=== PATIENT | male | born 1965 | race Caucasian/White ===

== ENCOUNTER 2025-06-07 19:41 | Observation (INO) | payer OTHER, SELFPAY ==
[2025-06-07 19:52] VITALS: BP 180/84; PULSE 50; RESP 14; TEMP 36.3; O2SAT 100; BMI 29.7
--- NOTE | 2025-06-07 19:57 | EKG_ITS ---
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
[2025-06-08] VITALS (28 sets, daily range): BP systolic 116–172; BP diastolic 66–89; PULSE 82–105; RESP 14–21; TEMP 36.5–37.6; O2SAT 89–97; BMI 29.7
--- NOTE | 2025-06-08 | PATH_ITS ---
[facility] Accession Number: [id number] No. of containers..01 Tissue . 01 Material submitted: . gallbladder - GALLBLADDER . 01 Diagnosis: GALLBLADDER, CHOLECYSTECTOMY: Acute calculous cholecystitis with surface erosions, focal ulceration and reactive changes. Negative for dysplasia or malignancy. MRV 06/17/2025 1602 Local . 01 Electronically signed: . Maury Mcfarland MD, Pathologist NPI- [id number] . 01 Gross description: . Received in formalin with two identifiers and gallbladder, is an intact gallbladder 9.6 x 5.1 x 3.4 cm. The external surface is green-brown to violaceous and unremarkable. The cystic duct margin is inked blue. No pericystic lymph node is identified. The lumen contains multiple dark brown faceted calculi up to 0.9 cm in greatest dimension not grossly obstructing the cystic duct and admixed with green to brown viscous bile. The mucosa is green-brown and velvety with no yellow discoloration, polyps, or lesions identified. The antonio average 0.3 cm thick with no lesions identified. Hazardous Substances Scientist sections to include the cystic duct margin and full thickness sections are submitted in cassette A1. ([id number]) /EDMUNDO 06/10/20252002 Local . 01 Pathologist provided ICD-10: K80.00 . 01 CPT . 748982 Specimen Comment: A courtesy copy of this report has been sent to [phone] Performed at: [address] [id number] MD Gabe Doherty MD Phone: [phone]
--- NOTE | 2025-06-08 01:38 | ED_ITS ---
HPI - Abdominal Pain General Chief Complaint: Abdominal Pain Stated Complaint: sharp pain in abd/back, dry heaving Time Seen by Provider: 06/08/25 00:59 Source: patient Mode of arrival: Ambulatory History of Present Illness HPI narrative: 59-year-old male without prior abdominopelvic surgeries, no blood thinners, has history of shoulder arthritis taking regular Aleve, history of kidney stones, no known history of stomach ulcers, complains of upper abdominal pain since yesterday, radiates to the back, with some nausea and retching, no fevers or chills. Worse pain with deep breathing. No injury trauma new activities. Denies frequent or painful urination. Denies history of known kidney stones. Occasional cough, nonproductive. No history of blood clots to legs or lungs. No leg pain or swelling symptoms. Denies shortness of breath. Meds: Hydrochlorothiazide, statin, [id number] Aleve Social history: Lives part-time in the [facility] during go[place], otherwise resident most [place] and [place]. Primary care providers in the [facility] area. Related Data Home Medications ?Medication ?Instructions ?Recorded ?Confirmed atorvastatin 10 mg tablet 10 mg PO DAILY 06/08/2505/20 hydrochlorothiazide 12.5 mg capsule 12.5 mg PO DAILY 0 06/08/25 06/08/25 multivitamin (Daily Multi-Vitamin 1 tab PO DAILY 06/0806/08/25 tablet) naproxen sodium 220 mg capsule 220 mg PO BID 06/08/25 06/08/25 (Aleve) Allergies Allergy/AdvReac Type Severity Reaction Status Date / Time No Known Drug Allergies Allergy Verified 06/07/25 19:52 Patient History Social History household members: spouse Smoking Status: Current some day smoker Smoking Status: Current some day smoker Exam Narrative Exam Narrative: GENERAL: Well-developed patient, in mild distress. HEAD: Atraumatic. Normocephalic. EYES: Pupils equal round and reactive. Extraocular motions intact. No scleral icterus. No injection or drainage. ENT: Nose without bleeding, purulent drainage. Throat without erythema, tonsillar hypertrophy or exudate. Airway patent. NECK: Trachea midline. Non tender CARDIOVASCULAR: Regular rate and rhythm without murmurs, gallops, or rubs. RESPIRATORY: Clear to auscultation. Breath sounds equal bilaterally. No wheezes, rales, or rhonchi. GASTROINTESTINAL: Tender right upper quadrant and epigastrium, no distention, no guarding or rebound, bowel tones without rushes or tinkles. EXTREMITIES: No edema or joint tenderness. BACK: Nontender without deformity or crepitance. No flank tenderness. NEURO: AOx3. Motor functions grossly nonfocal. SKIN: No rash or erythema of visible areas Initial Vital Signs Initial Vital Signs: Vital Signs Temperature 97.4 F L 06/07/25 19:52 Pulse Rate 50 L 06/07/25 19:52 Respiratory Rate 14 06/07/25 19:52 Blood Pressure 180/84 H 06/07/25 19:52 Pulse Oximetry 100 06/07/25 19:52 Oxygen Delivery Method Room Air 06/07/25 19:52 Course Orders Ordered: Acetaminophen (Acetaminophen 325 Mg Tablet) 650 mg PO Q6H PRN PRN Reason: Fever/Mild Pain (1-3) Hydrocodone Bitart/Acetaminophen (Hydrocodone/Acet 5/325 Tablet) 1 tab PO Q4H PRN PRN Reason: Pain, Moderate (4-6) Last Admin: 06/08/25 14:09 Dose: 1 tab Documented By: LAKISHA Hydrocodone Bitart/Acetaminophen (Hydrocodone/Acet 5/325 Tablet) 2 tab PO Q4H PRN PRN Reason: Pain, Severe (7-10) Enoxaparin Sodium (Enoxaparin 40 Mg/0.4 Ml Syringe) 40 mg SUBCUT DAILY [facility] Hydromorphone HCl (Hydromorphone Hcl 0.5 Mg/0.5 Ml Syringe) 0.5 mg IV Q2H PRN PRN Reason: Pain, Severe (7-10) Last Admin: 06/08/25 11:37 Dose: 0.5 mg Documented By: LDV Piperacillin Sod/Tazobactam (Sod 3.375 gm/ Sodium Chloride) 100 mls @ 25 mls/hr IV Q8H [facility] Last Infusion: 06/08/25 15:46 Dose: Infused Documented By: Admin: 06/08/25 11:41 Dose: 25 mls/hr Documented By: LDV Ibuprofen (Ibuprofen 600 Mg Tablet) 600 mg PO Q6H PRN PRN Reason: Fever/Mild Pain (1-3) Naloxone HCl (Naloxone 0.4 Mg/Ml Vial) 0.2 mg IV Q2MIN PRN PRN Reason: Opiate Reversal Ondansetron HCl (Ondansetron 4 Mg/2 Ml Inj) 4 mg IV Q8HR PRN PRN Reason: Nausea And Vomiting Discontinued Medications Benzocaine (Benzocaine/Menthol 1 Christopher Pkt) 1 each PO PRN PRN PRN Reason: Sore Throat Bupivacaine HCl/Epinephrine Bitart (Bupivacaine 0.5% W/ Epi (Pf) 30 Ml Vial) 30 ml INJ NOW ONE Stop: 06/08/25 08:51 Last Admin: 06/08/25 08:50 Dose: 30 ml Documented By: Famotidine (Famotidine 20 Mg/2 Ml Vial) 20 mg IV NOW MINE Last Admin: 06/08/25 02:58 Dose: 20 mg Documented By: Fentanyl (Fentanyl 100 Mcg/2 Ml Inj) 0 mcg IV Q5MIN PRN PRN Reason: Pain, Severe (7-10) Fentanyl (Fentanyl 100 Mcg/2 Ml Inj) 0 mcg IV Q5M PRN PRN Reason: Pain, Moderate (4-6) Fentanyl (Fentanyl 100 Mcg/2 Ml Inj) 0 mcg IV Q5M PRN PRN Reason: Pain, Severe (7-10) Hydromorphone HCl (Hydromorphone 1 Mg/Ml Syringe) 1 mg IV NOW ONE Stop: 06/08/25 01:48 Last Admin: 06/08/25 01:52 Dose: 1 mg Documented By: FRIEDA Hydromorphone HCl (Hydromorphone Hcl 0.5 Mg/0.5 Ml Syringe) 0.5 mg IV NOW ONE Stop: 06/08/25 06:29 Last Admin: 06/08/25 06:31 Dose: 0.5 mg Documented By: FRIEDA Hydromorphone HCl (Hydromorphone 1 Mg/Ml Syringe) 0 mg IV Q5MIN PRN PRN Reason: Pain, Mild (1-3) Hydromorphone HCl (Hydromorphone 1 Mg/Ml Syringe) 0 mg IV Q5MIN PRN PRN Reason: Pain, Moderate (4-6) Hydromorphone HCl (Hydromorphone 1 Mg/Ml Syringe) 0 mg IV Q5MIN PRN PRN Reason: Pain, Severe (7-10) Hydroxyzine HCl (Hydroxyzine 50 Mg/Ml Inj) 25 mg IM NOW PRN PRN Reason: Pain, Mild (1-3) Piperacillin Sod/Tazobactam (Sod 4.5 gm/ Sodium Chloride) 100 mls @ 200 mls/hr IV NOW ONE Stop: 06/08/25 07:28 Last Infusion: 06/08/25 08:03 Dose: Infused Documented By: Admin: 06/08/25 07:43 Dose: 200 mls/hr Documented By: SAMY Lactated Ringer's (Lactated Ringers) 1,000 mls @ 42 mls/hr IV CONT [facility] Last Infusion: 06/08/25 11:03 Dose: Infused Documented By: Admin: 06/08/25 09:14 Dose: 42 mls/hr Documented By: Infusion: 06/08/25 09:14 Dose: Infused Documented By: Admin: 06/08/25 07:59 Dose: 42 mls/hr Documented By: AARON Indocyanine Green (Indocyanine Green 25 Mg Vial) 2.5 mg IV PREOP [facility] Last Admin: 06/08/25 08:38 Dose: 2.5 mg Documented By: VU Ondansetron HCl (Ondansetron 4 Mg/2 Ml Inj) 4 mg IV NOW PRN PRN Reason: Nausea And Vomiting Ondansetron HCl (Ondansetron 4 Mg Odt) 4 mg PO NOW PRN PRN Reason: Nausea And Vomiting Ondansetron HCl (Ondansetron 4 Mg/2 Ml Inj) 4 mg IV NOW ONE Stop: 06/08/25 01:48 Last Admin: 06/08/25 01:52 Dose: 4 mg Documented By: FRIEDA Ondansetron HCl (Ondansetron 4 Mg/2 Ml Inj) 4 mg IV NOW PRN PRN Reason: Nausea And Vomiting Oxycodone HCl (Oxycodone Ir 5 Mg Tablet) 5 mg PO PACUNOW PRN PRN Reason: Mild or moderate pain Vital Signs Vital signs: Vital Signs - 8 hr 06/08/25 01:38 06/08/25 01:39 06/08/25 01:39 Pulse Rate 99 H 99 H Respiratory Rate 14 Blood Pressure 172/89 H Pulse Oximetry 96 97 Oxygen Delivery Method Room Air 06/08/25 02:00 06/08/25 02:00 06/08/25 02:30 Pulse Rate 99 H Respiratory Rate Blood Pressure 139/78 132/75 Pulse Oximetry 91 Oxygen Delivery Method 06/08/25 02:30 06/08/25 03:00 06/08/25 03:00 Pulse Rate 89 93 H Respiratory Rate Blood Pressure 135/76 Pulse Oximetry 90 L 93 Oxygen Delivery Method Room Air 06/08/25 03:30 06/08/25 03:30 06/08/25 04:00 Pulse Rate 82 Respiratory Rate Blood Pressure 120/73 116/72 Pulse Oximetry 91 Oxygen Delivery Method 06/08/25 04:00 06/08/25 04:41 06/08/25 04:42 Pulse Rate 88 102 H Respiratory Rate 18 Blood Pressure 151/78 H Pulse Oximetry 92 91 Oxygen Delivery Method 06/08/25 04:42 06/08/25 05:00 06/08/25 05:00 Pulse Rate 103 H 97 H Respiratory Rate 14 Blood Pressure 124/72 Pulse Oximetry 96 93 Oxygen Delivery Method Room Air 06/08/25 05:30 06/08/25 05:30 06/08/25 06:00 Pulse Rate 97 H Respiratory Rate Blood Pressure 122/77 126/71 Pulse Oximetry 94 Oxygen Delivery Method 06/08/25 06:00 06/08/25 06:30 06/08/25 06:30 Pulse Rate 104 H 105 H Respiratory Rate 16 Blood Pressure 129/73 Pulse Oximetry 92 94 Oxygen Delivery Method Room Air 06/08/25 07:00 06/08/25 07:00 Pulse Rate 88 Respiratory Rate Blood Pressure 122/67 Pulse Oximetry 91 Oxygen Delivery Method MDM - Abdominal Pain Lab Data Attestation: I reviewed the patient's lab results. Labs: Urine dip negative for blood. Point of care testing: Urine Dip Bedside Urine Glucose Negative Bedside Urine Bilirubin - Negative Bedside Urine Ketone - Negative Urine Specific Dayhoit 1.025 Bedside Urine Occult Blood + Bedside Urine pH 505 Bedside Urine Protein - Negative Bedside Urine Urobilinogen - Negative Bedside Urine Nitrite - Negative Bedside Urine Leukocytes - Negative Esterase ECG Data Attestation: I personally reviewed and interpreted this ECG as follows: Interpretation: 0219, normal sinus rhythm with rate of 88, no obvious ST segment elevation or depression changes. OK 150, QRS 84, QTC 430. MDM Narrative Medical decision making narrative: 59-year-old male with upper abdominal discomfort lower chest discomfort, worse with deep breathing, no injury or trauma. History of kidney stones. No fevers or chills. He takes regular Aleve. RUQ tenderness on exam. DDx consider cholecystitis, duodenitis, gastritis, pancreatitis, musculoskeletal, biliary colic, choledocholithiasis, lower lobe pneumonia, pulmonary embolism, other. Lab data sent to [facility] for processing while in-house lab was down. Results faxed: White blood cell count 04138, hemoglobin 17.2, platelets 262,000. Sodium 139 with potassium 4.1, serum CO2 28, BUN 26 with creatinine 1.34. T bili 0.9, alkaline phosphatase 90, AST 33, ALT 28. Lipase 129 normal. Urinalysis negative. IV Dilaudid/Zofran, IV Pepcid. CT angio chest with IV only CT abdomen and pelvis imaging ordered. EKGs normal sinus rhythm, no acute changes. CT angio chest. Impressions: ?Findings highly suggestive of acute ch olecystitis. Recommend right upper quadrant ultrasound which is more sensitive examination for the diagnosis.. See tele radiology report. In text portion there is mentioned of gallbladder distention with pericholecystic inflammatory changes and pericholecystic fluid. CT abdomen pelvis with IV contrast. Impressions: ?No pulmonary embolism aortic dissection or aneurysm. Gallbladder is distended with questionable pericholecystic inflammatory changes. Recommend right upper quadrant ultrasound for further evaluation.. See teleradiology report. US right upper quadrant abdomen requested. Ultrasound right upper quadrant. Impressions: ?Distended gallbladder with gallstones and positive sonographic Jacob's sign, concerning for early acute cholecystitis. Recommend surgical consultation.? See tele radiology report. Pain seems better controlled with IV Dilaudid. Still has some tenderness to right upper quadrant abdomen. CT scans that were suspicious for acute cholecystitis gallbladder changes, as well as ultrasound read by different radiologist. Keep NPO. Will consult surgery. 614, case discussed with Dr. Smart surgery who will see patient in ED. Keep NPO. Hold antibiotics for now. 06, patient has increased pain after re-examination by me after CT imaging, we will re-dose with IV Dilaudid. Await surgical consultation. 719, case discussed again with Dr. Smart, will start antibiotics IV Zosyn, he is still to see patient here. Anticipate surgery. to OR from ED Dr Smart surgery Critical Care Time Critical Care Time Critical Care Time: Yes Total Critical Care Time: 35 Attestation: The high probability of a clinically significant, sudden or life threatening deterioration of the [abdominopelvic, gastrointestinal] system(s) required my full and direct attention, intervention and personal management. The aggregate critical care time was [35] minutes. This time is in addition to time spent performing reported procedures but includes the following: [x] Data Review and interpretation [x] Patient assessment and monitoring of vital signs [x] Documentation [x] Medication orders and management Discharge Plan Departure Patient Disposition: Admitted to Surgery Clinical Impression: Acute calculous cholecystitis Admit Date/Time: 06/08/25 07:41 Admit Provider: Suman Smart
--- NOTE | 2025-06-08 01:46 | DI.CT.S_ITS ---
PROCEDURE: CT ANGIO CHEST PE PROTOCOL INDICATIONS: pleuritic RUQ pain TECHNIQUE: After the administration of intravenous contrast, 2 mm thick sections acquired from the pulmonary apices to the posterior costophrenic angles. MIP reformats of the arterial vasculature were utilized. For radiation dose reduction, the following was used: automated exposure control, adjustment of mA and/or kV according to patient size. COMPARISON: None. FINDINGS: Pulmonary arteries: Pulmonary arteries are normal in size, and demonstrate no intraluminal filling defects to suggest central pulmonary embolism. Lower Neck: No enlarged lymph nodes. Thyroid: No thyroid nodules which require sonographic follow up, per consensus guidelines. Axillae: No enlarged lymph nodes. Chest Wall: Unremarkable. Bones: Unremarkable. Lungs and Pleura: No pneumothorax or pleural effusions. No consolidation or suspicious nodules. Heart: Heart size is normal. No pericardial effusion. Thoracic Vessels: No aortic aneurysm. Mediastinum and Dagmar: No enlarged lymph nodes. Esophagus: No wall thickening. No hiatal hernia. Upper Abdomen: Gallbladder distension is partially imaged. Possible pericholecystic inflammatory changes IMPRESSION: No evidence of pulmonary embolism, aortic dissection or aneurysm. Partially imaged gallbladder distension. Consider right upper quadrant ultrasound. Note: This final report is concordant with the preliminary after-hours interpretation provided by [employer] Approved by: Reji Norwood M.D. on 06/08/2025 at 9:01
--- NOTE | 2025-06-08 01:46 | DI.CT.S_ITS ---
PROCEDURE: CT ABDOMEN PELVIS W CON INDICATIONS: RUQ epig pain TECHNIQUE: After the administration of intravenous contrast, axial sections acquired from the lung bases to the pubic symphysis. Coronal and sagittal reformats were performed. For radiation dose reduction, the following was used: automated exposure control, adjustment of mA and/or kV according to patient size. COMPARISON: None. FINDINGS: Image quality: Diagnostic. Lower Chest: No significant findings. ABDOMEN: Liver: No solid mass. Gallbladder: Cholelithiasis. Gallbladder distension and pericholecystic inflammatory changes Biliary ducts: No biliary dilation. Pancreas: No ductal dilation. Spleen: Size is within normal limits. Adrenal Glands: No adrenal nodules. Kidneys and Ureters: No hydronephrosis. No solid mass. No complex renal cystic lesion which requires follow up. Stomach and Bowel: Normal colonic caliber, without significant wall thickening. Multiple diverticula arise from the sigmoid colon without evidence of diverticulitis. Peritoneum: No abnormal intraperitoneal fluid. No free air. Ventral Wall: No significant ventral hernia. Abdominal Nodes: No retroperitoneal or mesenteric adenopathy by size criteria. Vessels: Aorta and inferior vena cava are normal in size. PELVIS: Pelvic Organs: Unremarkable. Bladder: No bladder wall thickening, accounting for underdistention. Pelvic Nodes: No enlarged lymph nodes. Miscellaneous: No inguinal hernias are seen. Bones: Degenerative disc disease and arthropathy noted in lower lumbar spine. IMPRESSION: Acute cholecystitis Note: This final report is concordant with the preliminary after-hours interpretation provided by [employer] Approved by: Reji Norwood M.D. on 06/08/2025 at 9:02
[2025-06-08] MEDS: ONDANSETRON 4 MG/2 ML INJ IV (01:52)
[2025-06-08] MEDS: FAMOTIDINE 20 MG/2 ML VIAL IV (02:58)
--- NOTE | 2025-06-08 05:00 | DI.US.S_ITS ---
PROCEDURE: US ABDOMEN LIMITED INDICATIONS: RUQ abdomen TECHNIQUE: Real-time scanning was performed of the abdominal and retroperitoneal organs, with image documentation. COMPARISON: None. FINDINGS: Liver: Liver is normal in size and homogeneous in echotexture. Gallbladder: Cholelithiasis. Gallbladder wall thickness is upper limits at 3 mm. Positive Jacob sign. No obvious pericholecystic fluid present. Biliary ducts: Intrahepatic bile ducts are non-dilated. Extrahepatic bile duct caliber measures 6.2 mm. Normal is 6-7 mm or less in diameter, or 10 mm or less post-cholecystectomy. IMPRESSION: Probable acute cholecystitis. Advise surgical consultation. Note: This final report is concordant with the preliminary after-hours interpretation provided by [employer] Approved by: Reji Norwood M.D. on 06/08/2025 at 9:12
[2025-06-08] MEDS: PIPERACILLIN/TAZO 4.5 GM in SODIUM CHLORIDE 0.9% 100 ML IV (07:43)
--- NOTE | 2025-06-08 07:47 | PM.HP.IH.1 ---
History of Present Illness History of Present Illness Date Patient Seen: 06/08/25 Time Patient Seen: 07:47 Chief complaint: sharp pain in abd/back, dry heaving Narrative: Prashant is a 59 year old man who presented to the emergency room with one day of right upper quadrant abdominal pain. A CT and ultrasound showed a distended gallbladder with gallstones. He had a slightly elevated white blood cell count and normal LFTs. No prior abdominal surgery. [facility] Social History Smoking Status: Current some day smoker Meds Home Medications and Allergies Home Medications ?Medication ?Instructions ?Recorded ?Confirmed ?Type atorvastatin 10 mg tablet 10 mg PO DAILY 06/08/25 06/08/25 History hydrochlorothiazide 12.5 mg capsule 12.5 mg PO DAILY 06/08/25 06/08/25 History multivitamin (Daily Multi-Vitamin 1 tab PO DAILY 06/08/25 06/08/25 History tablet) naproxen sodium 220 mg capsule 220 mg PO BID 06/08/25 06/08/25 History (Aleve) Allergies Allergy/AdvReac Type Severity Reaction Status Date / Time No Known Drug Allergies Allergy Verified 06/07/25 19:52 Exam Vital Signs (past 8 hours): - 06/08/25 01:38 06/08/25 01:39 06/08/25 01:39 Pulse Rate 99 H 99 H Respiratory Rate 14 Blood Pressure 172/89 H Pulse Oximetry 96 97 Oxygen Delivery Method Room Air 06/08/25 02:00 06/08/25 02:00 06/08/25 02:30 Pulse Rate 99 H Respiratory Rate Blood Pressure 139/78 132/75 Pulse Oximetry 91 Oxygen Delivery Method 06/08/25 02:30 06/08/25 03:00 06/08/25 03:00 Pulse Rate 89 93 H Respiratory Rate Blood Pressure 135/76 Pulse Oximetry 90 L 93 Oxygen Delivery Method Room Air 06/08/25 03:30 06/08/25 03:30 06/08/25 04:00 Pulse Rate 82 Respiratory Rate Blood Pressure 120/73 116/72 Pulse Oximetry 91 Oxygen Delivery Method 06/08/25 04:00 06/08/25 04:41 06/08/25 04:42 Pulse Rate 88 102 H Respiratory Rate 18 Blood Pressure 151/78 H Pulse Oximetry 92 91 Oxygen Delivery Method 06/08/25 04:42 06/08/25 05:00 06/08/25 05:00 Pulse Rate 103 H 97 H Respiratory Rate 14 Blood Pressure 124/72 Pulse Oximetry 96 93 Oxygen Delivery Method Room Air 06/08/25 05:30 06/08/25 05:30 06/08/25 06:00 Pulse Rate 97 H Respiratory Rate Blood Pressure 122/77 126/71 Pulse Oximetry 94 Oxygen Delivery Method 06/08/25 06:00 06/08/25 06:30 06/08/25 06:30 Pulse Rate 104 H 105 H Respiratory Rate 16 Blood Pressure 129/73 Pulse Oximetry 92 94 Oxygen Delivery Method Room Air Oxygen Delivery Method Room Air Const General: healthy appearing Resp Effort & Inspection: normal respiratory effort Assessment & Plan Assessment and plan (1) Acute calculous cholecystitis: Status: Acute Plan We discussed risks benefits of a robotic cholecystectomy, possibility of a drain and an extended stay if he has severe inflammation around the gallbladder. He would like to proceed. He has received a dose of Zosyn. Time-Based Coding :: [TOTAL MINUTES] spent with patient and on the chart (including review of chart, obtaining history, exam, reviewing outside data, placing orders, documenting exam and treatment plan, and counseling patient) on [DATE]. [employer] Document charge(s): No
[2025-06-08] MEDS: LACTATED RINGERS 1,000 ML 42 ML IV ×2 (07:59→09:14)
[2025-06-08] MEDS: INDOCYANINE GREEN 25 MG VIAL IV (08:38)
--- NOTE | 2025-06-08 08:46 | SUR.OPER ---
Supine on padded OR bed with pink pads, head on pillow, safety belt at thigh, both arms padded and tucked at sides. Legs uncrossed. Padded footboard in place. Tape over blanket to secure lower legs. Surgeon in room to approve final position
--- NOTE | 2025-06-08 10:22 | PM.OP.1 ---
Operative Date/Time/Diagnoses Date of procedure: 06/08/25 Time of procedure: 10:23 Pre-op diagnosis: Acute cholecystitis Post-op diagnosis: same Procedure & Clinicians Procedure: Robotic cholecystectomy Same procedure(s) as scheduled: Yes Surgeon: Suman Smart Click Yes if Unassisted: Yes Anesthesia Type: General Operative Notes Findings: Acutely distended, inflamed gallbladder Applied: none Estimated Blood Loss (mL): 35 Procedure in detail: The patient given Zosyn in the emergency department. The patient was brought to the operating room, placed on the table in the supine position. General endotracheal anesthesia was induced. Both arms were tucked. The abdomen was prepped and draped. A time-out was performed. We made a 1 cm infraumbilical incision. We dissected down to the base of the umbilical stalk using cautery. We grasped the umbilical stalk with a Gordo clamp to elevate the abdominal wall. We opened the fascia in the midline with cautery. We pierced the peritoneum with a Peon clamp. The 12 mm port was placed and the abdomen was insufflated to 15 mmHg. The endoscope was inserted. There was no evidence of any injury from the entry. Next, we placed 8 mm ports in the right abdomen, left mid abdomen and left upper quadrant. The patient was then positioned in 20? of reverse Trendelenburg. The gallbladder was noted to be quite tense, inflamed and distended. Approximately 40 mL of dark bile was aspirated using a needle and syringe brought in through arm 1 to decompress the gallbladder. The robot was brought in from the patient's left side and docked. A fenestrated bipolar was placed through arm 1, the hook cautery through arm 3 and the ProGrasp through arm 4. The gallbladder was grasped at the dome with the ProGrasp and retracted cephalad. We then dissected the cystic structures with hook cautery. Firefly was used to visualize the cystic duct. We then placed hemoclips on the cystic duct and artery and divided the cystic duct and artery between the clips. The gallbladder was then dissected off the liver and placed in a specimen retrieval bag. Blood and bile was suctioned out of the right upper quadrant. We then removed the 8 mm ports under direct vision we removed the 12 mm port. We then injected some local into the fascia and closed the fascia at the infraumbilical incision with 2 interrupted 0 Vicryl sutures. The skin incisions were closed with 4 Monocryl and Steri-Strips were applied. Band-Aids were applied over the Steri-Strips. Specimen: Gallbladder and contents Complications: none Post-operative Condition: stable Disposition: PACU
[2025-06-08] MEDS: PIPERACILLIN/TAZO 3.375 GM in SODIUM CHLORIDE 0.9% 100 ML IV ×2 (11:41→19:50)
[2025-06-09 00:14] VITALS: BP 108/68; PULSE 81; RESP 14; TEMP 36.9; O2SAT 94
[2025-06-09] MEDS: PIPERACILLIN/TAZO 3.375 GM in SODIUM CHLORIDE 0.9% 100 ML IV (03:48)
[2025-06-09] MEDS: ACETAMINOPHEN 325 MG TABLET 650 MG PO ×2 (03:54→09:21)
[2025-06-09 04:35] VITALS: BP 121/72; PULSE 79; RESP 15; TEMP 36.2; O2SAT 97
[2025-06-09 05:11] LABS: Add Manual Diff / Slide Review NO; Hematocrit 43.3 % (41-53); Hemoglobin 14.8 g/dL (13.5-17.5); Lymphocytes Absolute Auto 1100 /uL (1100-4500); Mean Corpuscular HGB Conc 34.1 % (30-36); Mean Corpuscular Hemoglobin 29.9 PG (26-34); Mean Corpuscular Volume 87.5 fL (80-100); Platelet Count 202 X10^3/uL (150-400)
[2025-06-09 05:24] LABS: Alanine Aminotransferase 102 IU/L (<50); Albumin 4.1 g/dL (3.5-5.0); Albumin Globulin Ratio 1.2 (1.0-2.8); Alkaline Phosphatase 71 U/L (38-126); Blood Urea Nitrogen 25 mg/dL (9-20); Calcium 9.4 mg/dL (8.4-10.2); Carbon Dioxide 25 mmol/L (22-32); Chloride 102 mmol/L (98-107); Estimated Glomerular Filt Rate 52 mL/min (>60); Globulin 3.3 g/dL (1.7-4.1); Glucose 109 mg/dL (70-99); HEMOLYSIS 17 (0-50); Potassium 3.7 mmol/L (3.4-5.1); Sodium 136 mmol/L (137-145); Total Protein 7.4 g/dL (6.3-8.2)
[2025-06-09 08:00] VITALS: BP 134/72; PULSE 76; RESP 16; O2SAT 95
--- NOTE | 2025-06-09 08:43 | CM.DANOTE ---
Initial DCP Assessment Note. Review EMR and PT Interview. Met with patient at bedside to discuss discharge needs. PT is alert x 4 sitting up in bed. No acute distress. Patient lives independently with at home. Payor:? [facility] PCP: Dr. Teresa Martines in [place], [place]. Summary & Plan:?59 y/o M arrived to ED c/o RUQ pain. Admitted OBS, Dx. Acute Cholecystitis. Plan: Discharge home today. Patient and his are vacationing in the area for the next 2 weeks. If need be, they are able to follow up at [facility] for any medical concerns. Discharge Planning/Care Management CM Discharge Assessment Start: 06/08/25 07:46 Freq: Status: Active Protocol: Document 06/09/25 08:40 SM (Rec: 06/09/25 08:43 SM [id number]) Discharge Planning Assessment Assigned Discharge Renetta Coffman RN CM [facility] Provider Dr. Teresa Martines in [place], [place]. Insurance [facility] Contact Information Elen. #[phone] Advance Directives? No History Provided By Patient Has Patient been No admitted in last 30 days? Prior Living House Arrangements Household Members spouse Type of Drives own vehicle transporation used prior to admit Comment is able to transport home upon discharge Independent with ADL Yes 's Is patient alert and Yes oriented? Barriers to No Discharge Discharge Plan Home Referrals Initiated None needed Review Status In Process Please Provide Date 06/09/25 Initial DC Assessment Was Performed Next Review Type Continued Stay Review
--- NOTE | 2025-06-09 11:05 | PC.NURSE ---
Patient is A&OX4. VSS, afebrile on RA. He is able to ambulate independently, he tolerates breakfast well and is voiding w/o difficulty. He reports pain is well managed with prn TYLENOL and Ice. He is cleared for discharge this a.m. He acknowledges understanding of medications, site care, activity limitations, s/sx of infection and follow up plan. He is escorted by [employer] with and all of his belongings to private vehicle for discharge back home to [place] at 1045 this a.m.
== END 2025-06-09 10:45 | disposition home or self-care (01) ==
LOC: ED 06-08 01:20 → AC 06-08 07:45 → ICU 06-08 12:20 → AC 06-09 07:38 → ICU 06-09 07:38
PROVIDERS: Admitting Provider Surgery; Emergency Provider Emergency Medicine; Referring Provider Emergency Medicine; Visit Provider Surgery
PROC: 0FT44ZZ Resection of Gallbladder, Percutaneous Endoscopic Approach (ICD-10-PCS; CPT 47562; principal; 2025-06-08 08:00)
DX: K81.0 Acute cholecystitis (principal); F17.210 Nicotine dependence, cigarettes, uncomplicated
CPT/HCPCS: 47562; S2900; 36415; 71275; 74177; 76705; 80053; 81003; 85025; 93005; 96365; 96366; 96375; 96376; 99284; 99291; G0378; J0330; J1100; J1171; J2405; J2543; J2704; J3010